=== PATIENT | male | born 1970 | race Caucasian/White ===

== ENCOUNTER → 2019-03-04 | Outpatient (CLI) | payer BC ==
[2019-03-04 10:32] LABS: CHLORIDE,CL 104 mmol/L (98-107); SODIUM,NA 139 mmol/L (136-145)
[2019-03-04 10:46] LABS: HEMOGLOBIN A1C 5.8 % (4.3-5.7)
== END ==
LOC: LL.CLIN 10:30
PROVIDERS: ATTEND Nurse Practitioner
DX: Z00.00 Encounter for general adult medical examination without abnormal findings (principal); E78.00 Pure hypercholesterolemia, unspecified; R73.9 Hyperglycemia, unspecified
CPT/HCPCS: 36415; 80053; 80061; 83036; 85025

== ENCOUNTER 2022-05-18 16:16 | Emergency (ER) | payer BC ==
[2022-05-18] MEDS: Lisinopril 10 MG Tab PO ONE (17:49)
== END 2022-05-18 18:11 | disposition home or self-care (01) ==
LOC: LL.ED 16:16
DX: R04.0 Epistaxis (principal); E78.00 Pure hypercholesterolemia, unspecified; I10 Essential (primary) hypertension; Z79.899 Other long term (current) drug therapy
CPT/HCPCS: 36415; 85025; 99283

== ENCOUNTER 2025-03-10 12:32 | Emergency (ER) | payer OTHER, BC | END 2025-03-10 14:00 | disposition home or self-care (01) | LOC: LL.ED 12:32 | DX: L08.9 Local infection of the skin and subcutaneous tissue, unspecified (principal); I10 Essential (primary) hypertension; Z79.899 Other long term (current) drug therapy | CPT/HCPCS: 11730; 73140-F8; 99283; J2003 ==

== ENCOUNTER 2025-03-17 14:31 | Emergency (ER) | payer OTHER, BC | END 2025-03-17 15:40 | disposition home or self-care (01) | LOC: LL.ED 14:31 | DX: L08.9 Local infection of the skin and subcutaneous tissue, unspecified (principal); I10 Essential (primary) hypertension; E78.00 Pure hypercholesterolemia, unspecified; Z79.899 Other long term (current) drug therapy | CPT/HCPCS: 99282; 99283 ==